=== PATIENT | male | born 1970 | race Caucasian/White ===

== ENCOUNTER 2018-03-29 17:40 | Emergency (ER) | payer BC ==
[2018-03-29] MEDS ORDERED: SODIUM CHLORIDE 0.9% 1,000 ML IV STA (17:53)
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
[2018-03-29 18:46] LABS: ALT 41 U/L (21-72); AST 35 U/L (17-59); Albumin 4.1 g/dL (3.5-5.0); Alcohol 17 mg/dL; Alkaline Phosphatase 36 U/L (38-126); Amylase 37 U/L (30-110); Anion Gap 10 mmol/L; Blood Urea Nitrogen 10 mg/dL (9-20); Calcium 9.2 mg/dL (8.4-10.2); Carbon Dioxide 20 mmol/L (22-30); Chloride 110 mmol/L (98-107); Glucose 98 mg/dL (74-99); Lipase 145 U/L (23-300); Potassium 3.9 mmol/L (3.5-5.1); Sodium 140 mmol/L (137-145); Total Bilirubin 0.3 mg/dL (0.2-1.3); Total Protein 6.5 g/dL (6.3-8.2)
[2018-03-29 18:47] VITALS: RESP 18
[2018-03-29 18:47] LABS: Partial Thromboplastin Time 23.8 sec (22.0-30.0); Prothrombin Time 10.1 sec (9.0-12.0)
[2018-03-29 18:50] LABS: Appearance,Urine Clear (Clear); Bilirubin,Urine Negative (Negative); Blood,Urine Negative (Negative); Color,Urine Light Yellow; Glucose,Urine (UA) Negative (Negative); Ketones,Urine Negative (Negative); Leukocyte Esterase,Urine Negative (Negative); Nitrite,Urine Negative (Negative); Protein,Urine Negative (Negative); Specific Gravity,Urine 1.007 (1.001-1.035); Urobilinogen,Urine <2.0 mg/dL (<2.0)
[2018-03-29 18:53] LABS: Basophils % (A) 0 %; Creatine Kinase 141 U/L (55-170); Eosinophils # (A) 0.2 k/uL (0-0.7); Eosinophils % (A) 2 %; HGB 12.1 gm/dL (13.0-17.5); Lymphocytes # (A) 1.7 k/uL (1.0-4.8); Lymphocytes % (A) 17 %; MCH 23.9 pg (25.0-35.0); MCHC 33.7 g/dL (31.0-37.0); MCV 70.9 fL (80.0-100.0); Mean Platelet Volume 7.6; Microcytosis Moderate; Monocytes # (A) 0.5 k/uL (0-1.0); Monocytes % (A) 5 %; Neutrophils # (A) 7.4 k/uL (1.3-7.7); Neutrophils % (A) 74 %; Platelet Count 307 k/uL (150-450); RBC 5.07 m/uL (4.30-5.90); RDW 13.9 % (11.5-15.5); WBC 9.9 k/uL (3.8-10.6)
[2018-03-29] MEDS ORDERED: fentaNYL (PF) 50 MCG/ML 2 ML AMP IVP STA (18:55)
[2018-03-29 19:00] LABS: Amphetamine Screen,Urine Not Detected (NotDetected); Barbiturate Screen,Urine Not Detected (NotDetected); Benzodiazepines Screen,Urine Not Detected (NotDetected); Cocaine Screen,Urine Not Detected (NotDetected); Methadone Screen, Urine Not Detected (NotDetected); Opiate Screen,Urine Not Detected (NotDetected); Oxycodone Screen, Urine Not Detected (NotDetected); Phencyclidine Screen,Urine Not Detected (NotDetected); Tricyclic Antidepressant,Urine Not Detected (NotDetected); Urn Cannabinoid Scrn Not Detected (NotDetected)
[2018-03-29 19:04] LABS: Creatine Kinase MB 1.4 ng/mL (0.0-2.4); Troponin I <0.012 ng/mL (0.000-0.034)
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
[2018-03-29] MEDS ORDERED: MORPHINE SULFATE 4 MG/ML SYRINGE IVP STA (20:05)
[2018-03-29] MEDS ORDERED: LIDOCAINE 5% PATCH TOPICAL ONE (20:15)
[2018-03-29] MEDS ORDERED: LIDOCAINE 5% PATCH TOPICAL SCH (20:15)
[2018-03-29] MEDS ORDERED: DIAZEPAM 5 MG/ML 2 ML INJ IVP STA (21:09)
[2018-03-29 21:28] VITALS: BP 126/70; PULSE 75; TEMP 98.3
== END 2018-03-29 21:22 | disposition other institution (70) ==
LOC: EC 17:40
DX: S32.029A Unspecified fracture of second lumbar vertebra, initial encounter for closed fracture (principal); S32.039A Unspecified fracture of third lumbar vertebra, initial encounter for closed fracture; E78.5 Hyperlipidemia, unspecified; Z79.899 Other long term (current) drug therapy; Z87.828 Personal history of other (healed) physical injury and trauma; V93.89XA Other injury due to other accident on board unspecified watercraft, initial encounter; Y93.17 Activity, water skiing and wake boarding
CPT/HCPCS: 36415; 93005; 86900; 86901; 80053; 82150; 82550; 82553; 83605; 83690; 84484; 85025; 85610; 85730; 86850; 81003; 80306; 80320; 72170; 71045; 72129; 72125; 72132; 70450; 71260; 74177; 99285; 96374; 96375 ×2; 96361; J2270; J3360; J3010; Q9967